=== PATIENT | male | born 1950 | race Caucasian/White ===

== ENCOUNTER 2019-02-20 21:22 | Inpatient (IN) | payer MEDICARE ==
[~2019-02-20] VITALS: Ht 182.9 cm; Wt 75.8 kg
[~2019-02-20 21:22] MED LIST: AMOX1TAB64 PO; ASPI-496 PO; CARV-39 PO; CLOP75TA52 PO; DOXY100C2 PO; ENOX80SY4 SQ; FLUC200T PO; GABA300C10 PO; METF500T17 PO; SIMV40TA3 PO; WARF3TAB PO
[2019-02-20] MEDS ORDERED: PANTOPRAZOLE 80 MG in SODIUM CHLORIDE 0.9% 100 ML IV SCH (21:33)
[2019-02-20] MEDS ORDERED: PANTOPRAZOLE 80 MG in SODIUM CHLORIDE 0.9% 50 ML IVPB ONE (21:33)
--- NOTE | 2019-02-20 21:53 | NUR ---
PT ARRIVED WITH MODERATE AMOUNT OF DARK TARRY STOOL IN DIAPER. PT WAS CLEANED THOROUGHLY. WITH WITH LARGE NON BLANCHING AREA TO BUTTOCK. LEFT GREAT TOE WITH BLACKENED TIP.
[2019-02-20 21:59] LABS: MEAN CORPUSCULAR HEMOGLOBIN 26.2 pg (27.5-34.5); MEAN CORPUSCULAR HGB CONC 31.1 g/dL (33.2-36.2); MEAN CORPUSCULAR VOLUME 84.4 fL (81-97); MEAN PLATELET VOLUME 8.3 fL (7.4-10.4); PLATELET COUNT 400 x10^3/uL (130-400); RED BLOOD COUNT 2.69 x10^6/uL (4.38-5.82)
[2019-02-20] MEDS ORDERED: SODIUM CHLORIDE FLUSH 10ML SYR IVF ONE (22:00)
[2019-02-20 22:01] LABS: INTERNATIONAL NORMALIZED RATIO 1.84 (0.93-1.1); PROTHROMBIN TIME 18.9 Seconds (9.6-11.5)
[2019-02-20 22:02] LABS: ALANINE AMINOTRANSFERASE 15 U/L (12-78); ALBUMIN 1.4 g/dL (3.4-5.0); ANION GAP 8 mmol/L (5-15); CALCIUM 7.6 mg/dL (8.5-10.1); CHLORIDE 114 mmol/L (98-107); CREATININE 1.85 mg/dL (0.7-1.3)
[2019-02-20 22:04] LABS: ALKALINE PHOSPHATASE 125 U/L (45-117); BILIRUBIN,TOTAL 0.4 mg/dL (0.2-1.0)
[2019-02-20] MEDS ORDERED: INSU100C SQ-INSULIN (22:11)
[2019-02-20] MEDS ORDERED: OXYC5CAP2 PO (22:11)
[2019-02-20] MEDS ORDERED: BISA10SU54 PR (22:11)
[2019-02-20] MEDS ORDERED: PHYTONADIONE SQ (22:11)
[2019-02-20] MEDS ORDERED: ACET325T14 PO (22:11)
[2019-02-20 22:26] LABS: BASOPHILS # (AUTO) 0.21 x10^3/uL (0-0.1); BASOPHILS % (AUTO) 1 % (0-1); EOSINOPHILS % (AUTO) 5 % (1-7); LYMPHOCYTES # (AUTO) 4.27 x10^3/uL (1-3.4); LYMPHOCYTES % (AUTO) 28 % (22-44); MONOCYTES # (AUTO) 1.15 x10^3/uL (0.2-0.8); MONOCYTES % (AUTO) 8 % (2-9); NEUTROPHILS # (AUTO) 8.76 x10^3/uL (1.8-6.8); NEUTROPHILS % (AUTO) 58 % (42-75)
--- NOTE | 2019-02-20 22:32 | NUR ---
BLOOD CONSENT SIGNED BY MEG PONCE, THIS RN AND PT. REQ FOR BLOOD TUBED TO [facility]
[2019-02-20 22:45] VITALS: BP 81/51
--- NOTE | 2019-02-20 22:46 | NUR ---
BLOOD INFUSING AT THIS TIME.
[2019-02-20 22:55] LABS: MD SCAN
[2019-02-20 22:58] VITALS: BP 82/55
--- NOTE | 2019-02-20 23:00 | NUR ---
ADMITTING PROVIDER AT BEDSIDE.
--- NOTE | 2019-02-20 23:11 | NUR ---
SPOKE TO ADMITTING PROVIDER WHOM STATES HE WILL PLACE THE WOUND CARE CONSULT.
--- NOTE | 2019-02-20 23:11 | NUR ---
REPORT CALLED TO NETO QUEEN
[2019-02-20 23:20] VITALS: BP 91/32
[2019-02-20] MEDS ORDERED: SODIUM CHLORIDE 0.9% 1,000 ML IV SCH (23:23)
--- NOTE | 2019-02-20 23:24 | NUR ---
NOW THERE ARE NO BEDS AVAILABLE ON TELE2. REQUEST SENT TO [facility].
[2019-02-20] MEDS: PANTOPRAZOLE 80 MG in SODIUM CHLORIDE 0.9% 100 ML IV SCH (23:30)
--- NOTE | 2019-02-20 23:48 | NUR ---
REPORT CALLED TO LIA QUEEN. PT TO CT AT THIS TIME.
[2019-02-21] VITALS (17 sets, daily range): BP systolic 80–100; BP diastolic 50–79
[2019-02-21] MEDS ORDERED: CEFTRIAXONE PMX 1GM/50ML 50 ML IV SCH
[2019-02-21] MEDS ORDERED: METRONIDAZOLE PMX 500MG/100ML 100 ML IV SCH
[2019-02-21 00:18] LABS: HEMOGLOBIN A1C 5.3 % (4.2-6.3)
--- NOTE | 2019-02-21 00:19 | NUR ---
REQ FOR FFP TUBED TO [facility]
--- NOTE | 2019-02-21 00:29 | NUR ---
pt transported prior to ffp arriving. [facility] was called and informed of this. [facility] was called and informed of this. [facility] to send ffp to [facility].
[2019-02-21] MEDS ORDERED: SODIUM CHLORIDE 0.9% 1,000ML IVBOLUS ONE (01:00)
[2019-02-21 02:15] LABS: MICROSCOPIC NOT IND
[2019-02-21 02:18] LABS: CULTURE INDICATED? NO
[2019-02-21 04:21] LABS: MEAN CORPUSCULAR HGB CONC 31.8 g/dL (33.2-36.2); MEAN CORPUSCULAR VOLUME 84.7 fL (81-97); MEAN PLATELET VOLUME 8.8 fL (7.4-10.4); PLATELET COUNT 275 x10^3/uL (130-400); RED BLOOD COUNT 2.68 x10^6/uL (4.38-5.82); RED CELL DISTRIBUTION WIDTH 18.9 % (9.4-14.8)
[2019-02-21 04:22] LABS: INTERNATIONAL NORMALIZED RATIO 1.56 (0.93-1.1); PROTHROMBIN TIME 16.1 Seconds (9.6-11.5)
[2019-02-21 04:26] LABS: ALANINE AMINOTRANSFERASE 15 U/L (12-78); ALBUMIN 1.4 g/dL (3.4-5.0); ANION GAP 10 mmol/L (5-15); CALCIUM 7.3 mg/dL (8.5-10.1); CHLORIDE 114 mmol/L (98-107); CREATININE 1.57 mg/dL (0.7-1.3)
[2019-02-21 04:28] LABS: ALKALINE PHOSPHATASE 97 U/L (45-117); BILIRUBIN,TOTAL 0.7 mg/dL (0.2-1.0); TOTAL PROTEIN 4.7 g/dL (6.4-8.2)
[2019-02-21] MEDS: morphine SULFATE 10 MG/ML, 1ML IVPush PRN ×5 (04:41→23:53)
[2019-02-21 04:55] LABS: BASOPHILS # (AUTO) 0.04 x10^3/uL (0-0.1); BASOPHILS % (AUTO) 0 % (0-1); EOSINOPHILS # (AUTO) 0.64 x10^3/uL (0-0.4); EOSINOPHILS % (AUTO) 5 % (1-7); LYMPHOCYTES # (AUTO) 2.93 x10^3/uL (1-3.4); LYMPHOCYTES % (AUTO) 24 % (22-44); MD SCAN; MONOCYTES # (AUTO) 1.12 x10^3/uL (0.2-0.8); MONOCYTES % (AUTO) 9 % (2-9); NEUTROPHILS # (AUTO) 7.45 x10^3/uL (1.8-6.8); NEUTROPHILS % (AUTO) 61 % (42-75)
[2019-02-21] MEDS: PANTOPRAZOLE 80 MG in SODIUM CHLORIDE 0.9% 100 ML IV SCH ×2 (07:51→18:38)
[2019-02-21] MEDS: DAPTOMYCIN 400 MG in SODIUM CHLORIDE 0.9% 100 ML IVPB SCH (09:12)
[2019-02-21] MEDS: CEFTRIAXONE PMX 2GM/50ML 50 ML IV SCH (10:05)
[2019-02-21] MEDS ORDERED: FENTANYL PF 100 MCG/2ML ONE (10:24)
[2019-02-21] MEDS ORDERED: MIDAZOLAM 1 MG/ML, 2ML ONE (10:24)
[2019-02-21] MEDS ORDERED: MEPERIDINE/PF 25MG/0.5ML IVPush PRN (11:30)
[2019-02-21] MEDS ORDERED: HYDROmorphone 2 MG/ML, 1ML IVPush PRN (11:30)
[2019-02-21] MEDS ORDERED: EPHEDRINE 50 MG/ML, 1ML IVPush PRN (11:30)
[2019-02-21] MEDS ORDERED: OXYcodone 5 MG/5 ML ORAL.SOL UDC PO PRN (11:30)
[2019-02-21] MEDS ORDERED: ONDANSETRON 2MG/ML, 2ML IV PRN (11:30)
[2019-02-21] MEDS ORDERED: HALOPERIDOL 5 MG/ML IV PRN (11:30)
[2019-02-21] MEDS ORDERED: FENTANYL PF 100 MCG/2ML IV PRN (11:30)
[2019-02-21] MEDS ORDERED: EPINEPHRINE SYRINGE 0.1 MG/ML, 10ML ONE (11:36)
[2019-02-21] MEDS: SODIUM CHLORIDE 0.9% 1,000 ML IV SCH (23:09)
[2019-02-22 01:59] VITALS: BP 94/62
[2019-02-22 03:55] LABS: ANION GAP 6 mmol/L (5-15); CALCIUM 7.6 mg/dL (8.5-10.1); CHLORIDE 116 mmol/L (98-107); CREATININE 1.28 mg/dL (0.7-1.3)
[2019-02-22] MEDS: PANTOPRAZOLE 80 MG in SODIUM CHLORIDE 0.9% 100 ML IV SCH ×2 (05:57→16:34)
[2019-02-22] MEDS: SODIUM CHLORIDE 0.9% 1,000 ML IV SCH ×2 (05:57→20:49)
[2019-02-22 07:38] VITALS: BP_SYST 102; BP_SYST 97; BP_DIAS 59; BP_DIAS 69
[2019-02-22] MEDS: CEFTRIAXONE PMX 2GM/50ML 50 ML IV SCH (09:48)
[2019-02-22] MEDS: morphine SULFATE 10 MG/ML, 1ML IVPush PRN ×4 (09:48→20:49)
[2019-02-22 10:25] LABS: BASOPHILS # (AUTO) 0.04 x10^3/uL (0-0.1); BASOPHILS % (AUTO) 0 % (0-1); EOSINOPHILS # (AUTO) 1.12 x10^3/uL (0-0.4); EOSINOPHILS % (AUTO) 11 % (1-7); LYMPHOCYTES # (AUTO) 1.91 x10^3/uL (1-3.4); LYMPHOCYTES % (AUTO) 19 % (22-44); MD NO; MEAN CORPUSCULAR HEMOGLOBIN 26.7 pg (27.5-34.5); MEAN CORPUSCULAR VOLUME 83.6 fL (81-97); MEAN PLATELET VOLUME 8.7 fL (7.4-10.4); MONOCYTES # (AUTO) 0.84 x10^3/uL (0.2-0.8); MONOCYTES % (AUTO) 8 % (2-9); NEUTROPHILS # (AUTO) 6.42 x10^3/uL (1.8-6.8); NEUTROPHILS % (AUTO) 62 % (42-75); PLATELET COUNT 263 x10^3/uL (130-400); RED BLOOD COUNT 3.33 x10^6/uL (4.38-5.82); RED CELL DISTRIBUTION WIDTH 18.8 % (9.4-14.8)
[2019-02-22 10:26] LABS: HCT (SEDRATE) 27.8 % (39.2-51.8)
[2019-02-22] MEDS: DAPTOMYCIN 400 MG in SODIUM CHLORIDE 0.9% 100 ML IVPB SCH (11:34)
[2019-02-22 12:09] VITALS: BP_SYST 101; BP_SYST 107; BP_DIAS 64; BP_DIAS 69
[2019-02-22 20:39] VITALS: BP 95/60
[2019-02-22] MEDS: SIMVASTATIN 40 MG TABLET PO SCH (20:49)
[2019-02-23] MEDS: morphine SULFATE 10 MG/ML, 1ML IVPush PRN ×5 (01:12→23:01)
[2019-02-23] MEDS: PANTOPRAZOLE 80 MG in SODIUM CHLORIDE 0.9% 100 ML IV SCH ×3 (02:12→23:35)
[2019-02-23 02:59] VITALS: BP 110/76
[2019-02-23 04:01] LABS: ANION GAP 6 mmol/L (5-15); CALCIUM 7.5 mg/dL (8.5-10.1); CHLORIDE 116 mmol/L (98-107)
[2019-02-23 07:30] VITALS: BP_SYST 108; BP_SYST 114; BP_DIAS 69; BP_DIAS 75
[2019-02-23] MEDS: SODIUM CHLORIDE 0.9% 1,000 ML IV SCH ×2 (07:32→19:15)
[2019-02-23] MEDS: CEFTRIAXONE PMX 2GM/50ML 50 ML IV SCH (09:31)
[2019-02-23] MEDS ORDERED: MORPHINE SULFATE 4 MG/ML, 1ML ONE ×2 (11:51→16:22)
[2019-02-23] MEDS: DAPTOMYCIN 400 MG in SODIUM CHLORIDE 0.9% 100 ML IVPB SCH (11:56)
[2019-02-23] MEDS: ONDANSETRON 2MG/ML, 2ML IVPush PRN (12:09)
[2019-02-23 12:28] VITALS: BP_SYST 112; BP_SYST 118; BP_DIAS 67; BP_DIAS 80
[2019-02-23 18:56] VITALS: BP 110/74
[2019-02-23 18:59] VITALS: BP 100/69
[2019-02-23] MEDS: SIMVASTATIN 40 MG TABLET PO SCH (23:01)
[2019-02-24 02:17] VITALS: BP 107/73
[2019-02-24] MEDS: morphine SULFATE 10 MG/ML, 1ML IVPush PRN ×6 (02:48→23:53)
[2019-02-24] MEDS: SODIUM CHLORIDE 0.9% 1,000 ML IV SCH (05:23)
[2019-02-24 05:32] LABS: BASOPHILS # (AUTO) 0.03 x10^3/uL (0-0.1); BASOPHILS % (AUTO) 0 % (0-1); EOSINOPHILS # (AUTO) 0.72 x10^3/uL (0-0.4); EOSINOPHILS % (AUTO) 6 % (1-7); LYMPHOCYTES # (AUTO) 1.83 x10^3/uL (1-3.4); LYMPHOCYTES % (AUTO) 14 % (22-44); MD NO; MEAN CORPUSCULAR HEMOGLOBIN 26.5 pg (27.5-34.5); MEAN CORPUSCULAR HGB CONC 31.8 g/dL (33.2-36.2); MEAN CORPUSCULAR VOLUME 83.4 fL (81-97); MEAN PLATELET VOLUME 8.7 fL (7.4-10.4); MONOCYTES # (AUTO) 1.13 x10^3/uL (0.2-0.8); MONOCYTES % (AUTO) 9 % (2-9); NEUTROPHILS % (AUTO) 71 % (42-75); PLATELET COUNT 227 x10^3/uL (130-400); RED BLOOD COUNT 3.12 x10^6/uL (4.38-5.82)
[2019-02-24 05:45] LABS: ANION GAP 7 mmol/L (5-15); CALCIUM 7.8 mg/dL (8.5-10.1); CHLORIDE 119 mmol/L (98-107); CREATININE 0.83 mg/dL (0.7-1.3)
[2019-02-24 07:45] VITALS: BP 99/63
[2019-02-24] MEDS: PANTOPRAZOLE 80 MG in SODIUM CHLORIDE 0.9% 100 ML IV SCH (09:30)
[2019-02-24] MEDS: CEFTRIAXONE PMX 2GM/50ML 50 ML IV SCH (09:36)
[2019-02-24] MEDS: DAPTOMYCIN 400 MG in SODIUM CHLORIDE 0.9% 100 ML IVPB SCH (12:10)
[2019-02-24 12:42] VITALS: BP 101/65
[2019-02-24 16:54] VITALS: BP 95/60
[2019-02-24] MEDS: PANTOPROZOLE 40MG TABLET PO SCH (17:00)
[2019-02-24 18:31] VITALS: BP 96/63
[2019-02-24] MEDS: SIMVASTATIN 40 MG TABLET PO SCH (20:39)
[2019-02-25 00:09] VITALS: BP 101/64
[2019-02-25] MEDS: PANTOPROZOLE 40MG TABLET PO SCH ×2 (04:53→16:03)
[2019-02-25] MEDS: morphine SULFATE 10 MG/ML, 1ML IVPush PRN ×6 (04:53→23:49)
[2019-02-25 05:27] LABS: BASOPHILS # (AUTO) 0.03 x10^3/uL (0-0.1); BASOPHILS % (AUTO) 0 % (0-1); EOSINOPHILS # (AUTO) 0.99 x10^3/uL (0-0.4); EOSINOPHILS % (AUTO) 9 % (1-7); LYMPHOCYTES # (AUTO) 2.04 x10^3/uL (1-3.4); LYMPHOCYTES % (AUTO) 17 % (22-44); MD NO; MEAN CORPUSCULAR HEMOGLOBIN 26.6 pg (27.5-34.5); MEAN CORPUSCULAR HGB CONC 31.9 g/dL (33.2-36.2); MEAN CORPUSCULAR VOLUME 83.5 fL (81-97); MEAN PLATELET VOLUME 8.9 fL (7.4-10.4); MONOCYTES # (AUTO) 1.23 x10^3/uL (0.2-0.8); MONOCYTES % (AUTO) 11 % (2-9); NEUTROPHILS # (AUTO) 7.41 x10^3/uL (1.8-6.8); NEUTROPHILS % (AUTO) 63 % (42-75); PLATELET COUNT 238 x10^3/uL (130-400); RED BLOOD COUNT 3.07 x10^6/uL (4.38-5.82); RED CELL DISTRIBUTION WIDTH 20.1 % (9.4-14.8)
[2019-02-25 05:37] LABS: ANION GAP 6 mmol/L (5-15); CHLORIDE 118 mmol/L (98-107)
[2019-02-25 05:38] LABS: CREATININE 0.83 mg/dL (0.7-1.3)
[2019-02-25 07:34] VITALS: BP 88/54
[2019-02-25] MEDS: CEFTRIAXONE PMX 2GM/50ML 50 ML IV SCH (08:29)
[2019-02-25] MEDS ORDERED: GLUCAGON 1 MG IM PRN (08:30)
[2019-02-25] MEDS ORDERED: DEXTROSE 4 GM TAB.CHEW PO PRN (08:30)
[2019-02-25] MEDS ORDERED: DEXTROSE 50%, 50ML SYRINGE IVPush PRN (08:30)
[2019-02-25] MEDS: SODIUM CHLORIDE FLUSH 10ML SYR IVF SCH ×2 (09:00→19:55)
[2019-02-25] MEDS: DAPTOMYCIN 400 MG in SODIUM CHLORIDE 0.9% 100 ML IVPB SCH (12:01)
[2019-02-25 13:13] VITALS: BP 95/60
[2019-02-25] MEDS ORDERED: MORPHINE SULFATE 4 MG/ML, 1ML ONE (15:58)
[2019-02-25] MEDS ORDERED: MORPHINE SULFATE 4 MG/ML, 1ML IVPush ONE (16:30)
[2019-02-25 18:24] VITALS: BP 95/60
[2019-02-25] MEDS: SIMVASTATIN 40 MG TABLET PO SCH (19:55)
[2019-02-25 23:40] VITALS: BP 104/59
[2019-02-26 00:05] VITALS: BP 108/76
[2019-02-26] MEDS: morphine SULFATE 10 MG/ML, 1ML IVPush PRN ×5 (04:33→20:49)
[2019-02-26] MEDS: PANTOPROZOLE 40MG TABLET PO SCH ×2 (04:33→15:43)
[2019-02-26 05:03] LABS: MEAN CORPUSCULAR HEMOGLOBIN 26.8 pg (27.5-34.5); MEAN CORPUSCULAR HGB CONC 32.2 g/dL (33.2-36.2); MEAN CORPUSCULAR VOLUME 83.2 fL (81-97); MEAN PLATELET VOLUME 8.8 fL (7.4-10.4); PLATELET COUNT 224 x10^3/uL (130-400); RED BLOOD COUNT 3.08 x10^6/uL (4.38-5.82); RED CELL DISTRIBUTION WIDTH 20.2 % (9.4-14.8)
[2019-02-26 05:26] LABS: ALBUMIN 1.2 g/dL (3.4-5.0); ANION GAP 9 mmol/L (5-15); CALCIUM 8.5 mg/dL (8.5-10.1); CHLORIDE 114 mmol/L (98-107)
[2019-02-26 05:30] LABS: ALANINE AMINOTRANSFERASE 8 U/L (12-78); ALKALINE PHOSPHATASE 98 U/L (45-117); BILIRUBIN,TOTAL 0.4 mg/dL (0.2-1.0); CREATININE 0.85 mg/dL (0.7-1.3); TOTAL PROTEIN 4.7 g/dL (6.4-8.2)
[2019-02-26 05:45] LABS: MD YES
[2019-02-26 05:47] LABS: ANISOCYTOSIS 1+; EOS#(MANUAL) 0.93 x10^3/uL (0.0-0.4); EOS% (MANUAL) 9 % (1-7); LYMPH#(MANUAL) 1.44 x10^3/uL (1-3.4); LYMPHS% (MANUAL) 14 % (22-44); MONOS#(MANUAL) 0.82 x10^3/uL (0.3-2.7); MONOS% (MANUAL) 8 % (2-9); SEG#(MANUAL) 7.11 x10^3/uL (1.8-6.8); SEGS% (MANUAL) 69 % (42-75)
[2019-02-26 05:48] LABS: HYPOCHROMIA 2+; OVALOCYTES 1+
[2019-02-26 05:49] LABS: <PLATELET ESTIMATE> ADEQUATE; <PLT MORPHOLOGY> NORMAL PLT MORPH; POLYCHROMASIA 1+
[2019-02-26 08:00] VITALS: BP 120/74
[2019-02-26] MEDS: SODIUM CHLORIDE FLUSH 10ML SYR IVF SCH ×2 (08:43→20:49)
[2019-02-26] MEDS: CEFTRIAXONE PMX 2GM/50ML 50 ML IV SCH (08:43)
[2019-02-26] MEDS: DAPTOMYCIN 400 MG in SODIUM CHLORIDE 0.9% 100 ML IVPB SCH (12:26)
[2019-02-26 14:00] VITALS: BP 105/71
[2019-02-26 20:00] VITALS: BP 112/74
[2019-02-26] MEDS: SIMVASTATIN 40 MG TABLET PO SCH (20:49)
[2019-02-27 02:52] VITALS: BP 101/67
[2019-02-27] MEDS: PANTOPROZOLE 40MG TABLET PO SCH ×2 (05:11→16:42)
[2019-02-27 07:54] VITALS: BP 104/71
[2019-02-27] MEDS: CEFTRIAXONE PMX 2GM/50ML 50 ML IV SCH (09:53)
[2019-02-27] MEDS: SODIUM CHLORIDE FLUSH 10ML SYR IVF SCH ×2 (09:54→21:01)
[2019-02-27] MEDS: DAPTOMYCIN 400 MG in SODIUM CHLORIDE 0.9% 100 ML IVPB SCH (12:45)
[2019-02-27 13:55] VITALS: BP 113/70
[2019-02-27 19:26] VITALS: BP 103/57
[2019-02-27] MEDS: SIMVASTATIN 40 MG TABLET PO SCH (21:01)
[2019-02-27] MEDS: morphine SULFATE 10 MG/ML, 1ML IVPush PRN (21:01)
[2019-02-27] MEDS: ONDANSETRON 2MG/ML, 2ML IVPush PRN (21:35)
[2019-02-28] VITALS (11 sets, daily range): BP systolic 67–108; BP diastolic 48–71
[2019-02-28] MEDS: morphine SULFATE 10 MG/ML, 1ML IVPush PRN ×3 (03:58→10:15)
[2019-02-28] MEDS: PANTOPROZOLE 40MG TABLET PO SCH (06:58)
[2019-02-28] MEDS: CEFTRIAXONE PMX 2GM/50ML 50 ML IV SCH (08:50)
[2019-02-28] MEDS: SODIUM CHLORIDE FLUSH 10ML SYR IVF SCH (08:50)
[2019-02-28] MEDS: DAPTOMYCIN 400 MG in SODIUM CHLORIDE 0.9% 100 ML IVPB SCH (11:30)
[2019-02-28] MEDS ORDERED: SODIUM CHLORIDE 0.9%, 500ML IVBOLUS ONE ×2 (12:30→13:00)
== END 2019-02-28 15:39 | disposition hospice, home (50) | DRG 871 ==
LOC: ED 21:36 → EDIP 22:41 → 5SO 02-21 00:36 → 4EST 02-24 16:43
PROVIDERS: ADMIT Family Medicine; ATTEND Family Medicine
PROC: 30233N1 Transfusion of Nonautologous Red Blood Cells into Peripheral Vein, Percutaneous Approach (ICD-10-PCS; principal; 2019-02-20)
PROC: 0T9B70Z Drainage of Bladder with Drainage Device, Via Natural or Artificial Opening (ICD-10-PCS; 2019-02-21)
PROC: 0W3P8ZZ Control Bleeding in Gastrointestinal Tract, Via Natural or Artificial Opening Endoscopic (ICD-10-PCS; 2019-02-21)
PROC: 0DB68ZX Excision of Stomach, Via Natural or Artificial Opening Endoscopic, Diagnostic (ICD-10-PCS; 2019-02-21)
PROC: 30233K1 Transfusion of Nonautologous Frozen Plasma into Peripheral Vein, Percutaneous Approach (ICD-10-PCS; 2019-02-21)
DX: A41.9 Sepsis, unspecified organism (principal); N17.0 Acute kidney failure with tubular necrosis; E43 Unspecified severe protein-calorie malnutrition; K26.0 Acute duodenal ulcer with hemorrhage; K29.71 Gastritis, unspecified, with bleeding; I50.22 Chronic systolic (congestive) heart failure; M86.9 Osteomyelitis, unspecified; D62 Acute posthemorrhagic anemia; E11.52 Type 2 diabetes mellitus with diabetic peripheral angiopathy with gangrene; I13.0 Hypertensive heart and chronic kidney disease with heart failure and stage 1 through stage 4 chronic kidney disease, or unspecified chronic kidney disease; I47.1 Supraventricular tachycardia; J96.10 Chronic respiratory failure, unspecified whether with hypoxia or hypercapnia; K50.90 Crohn's disease, unspecified, without complications; M87.852 Other osteonecrosis, left femur; M87.851 Other osteonecrosis, right femur; M86.8X8 Other osteomyelitis, other site; Z51.5 Encounter for palliative care; Z66 Do not resuscitate; Z68.22 Body mass index [BMI] 22.0-22.9, adult; R65.20 Severe sepsis without septic shock; E11.22 Type 2 diabetes mellitus with diabetic chronic kidney disease; E11.628 Type 2 diabetes mellitus with other skin complications; E11.649 Type 2 diabetes mellitus with hypoglycemia without coma; E11.65 Type 2 diabetes mellitus with hyperglycemia; E11.69 Type 2 diabetes mellitus with other specified complication; E78.5 Hyperlipidemia, unspecified; I25.10 Atherosclerotic heart disease of native coronary artery without angina pectoris; I25.5 Ischemic cardiomyopathy; I51.3 Intracardiac thrombosis, not elsewhere classified; J44.9 Chronic obstructive pulmonary disease, unspecified; L03.032 Cellulitis of left toe; L89.159 Pressure ulcer of sacral region, unspecified stage; N18.3 Chronic kidney disease, stage 3 (moderate); Z79.01 Long term (current) use of anticoagulants; Z99.81 Dependence on supplemental oxygen; Z79.899 Other long term (current) drug therapy; Z86.718 Personal history of other venous thrombosis and embolism; Z86.73 Personal history of transient ischemic attack (TIA), and cerebral infarction without residual deficits; Z87.891 Personal history of nicotine dependence; Z95.1 Presence of aortocoronary bypass graft
CPT/HCPCS: 36415; 71045; 74176; 80048; 80053; 81003; 82550; 82962; 83036; 83605; 83690; 83735; 84100; 84145; 85014; 85018; 85025; 85610; 85651; 85730; 86140; 86850; 86900; 86923; 87040; 87081; 88305; 93005; 96365; 99291; G0378; J0696; J0878; J2250; J2405; J3010; C9113; J2270; J7030; J7040; P9016; P9017